=== PATIENT | male | born 1990 | race Caucasian/White ===

== ENCOUNTER 2018-04-18 01:51 | Emergency (ER) | payer OTHER, SELFPAY ==
[2018-04-18] MEDS ORDERED: Ondansetron PF 4 MG/2 ML Vial ONE (02:11)
[2018-04-18] MEDS ORDERED: Morphine 4 MG/ML VIAL ONE (02:11)
[2018-04-18 02:40] LABS: Bilirubin Negative (Negative); Blood, Urine Negative (Negative); Clarity Slightly Cloudy (Clear); Glucose, Urine (Dipstick) Negative (Negative); Leukocyte Negative (Negative); Nitrite Negative (Negative); Protein, Urine (Dipstick) Negative (Neg-Trace); Urobilinogen 0.2 mg/dL (0.2-1.0); pH, Urine 7.5 (5.0-9.0)
--- NOTE | 2018-04-18 09:07 | ULT ---
PRELIMINARY REPORT/[facility]/EMERGENTY AFTER-HOURS PROCEDURE US Scrotum EXAM DATE/TIME: 04/18/2018 3:16 AM CLINICAL HISTORY: 28 years old, male; Pain; Scrotum pain; Patient HX: RT teste pain x 4 hrs, pain started after running 7 miles TECHNIQUE: Real-time ultrasound of the scrotum and contents with color Doppler and image documentation. COMPARISON: No relevant prior studies available. FINDINGS: The testicles are within normal limits and symmetrical in size. Right: No visible intratesticular mass. Duplex Doppler evaluation, with color flow and spectral waveform analysis, demonstrates intratesticul ar arterial and venous blood flow. The right epididymis is normal in size and appearance. There is a small amount of right scrotal fluid. There appears be a right-sided varicocele. Left: No visible intratesticular mass. Duplex Doppler evaluation, with color flow and spectral waveform analysis, demonstrates intratesticul ar arterial and venous blood flow. The left epididymis is normal in size and appearance. There is a small amount of left scrotal fluid. IMPRESSION: 1. No evidence for torsion by Doppler ultrasound. 2. No findings to suggest epididymitis. 3. Small bilateral hydroceles. 4. Right-sided varicocele. 5. Other details discussed above. Thank you for allowing us to participate in the care of your patient. Dictated and Authenticated by: Arnoldo Aguilar MD 04/18/2018 3:39 AM Central Time ([place] & [place]) FINAL REPORT TESTICULAR ULTRASOUND: Date: 04/18/18 FINDINGS/IMPRESSION: I agree with the preliminary report provided by Suzi. Please see the preliminary report for full deta ils. POS: [facility]
== END 2018-04-18 03:48 | disposition home or self-care (01) ==
LOC: SCSER 01:51 → ERS 03:48
DX: N50.819 Testicular pain, unspecified (principal)
CPT/HCPCS: 76870; 81003; 93976; J2270; J2405

== ENCOUNTER 2018-04-20 10:30 | Outpatient (CLI) | payer OTHER ==
--- NOTE | 2018-04-20 12:05 | CT ---
CT ABDOMEN AND PELVIS NONCONTRAST: CT RENAL CALCULUS PROTOCOL: INDICATIONS: Right costovertebral angle pain. COMPARISON: Reference made to 06/21/2013 CT exam. FINDINGS: There are faint areas of density within each kidney that suggest medullary nephrocalcinosis. In isidro tion, punctate hyperdensity of the kidneys may also relate to minute nephrolithiasis. There is no ob structive uropathy present. The urinary bladder is decompressed and unopacified. No evidence of ure teral dilatation. The lung bases are clear, where visualized. Moderate retained fecal material of t he colon is present. The solid abdominal organs, bowel, lymph nodes, and vasculature are limited in assessment by the noncontrast technique. No acute osseous pathology is visualized. There are areas of endplate irregularity with Schmorl's node formation, chronic in appearance. IMPRESSION: 1. Findings would suggest nephrocalcinosis/nephrolithiasis without associated obstructive uropathy. 2. Evaluation otherwise limited on the basis of noncontrast technique. POS: [facility]
== END 2018-04-20 10:31 | disposition home or self-care (01) ==
LOC: CT 10:30
PROVIDERS: ATTEND Urology
DX: M54.9 Dorsalgia, unspecified (principal)
CPT/HCPCS: 74176

== ENCOUNTER 2018-04-21 16:11 | Inpatient (IN) | payer OTHER ==
[2018-04-21 17:18] LABS: #Basophils 0.1 thou/uL (0.0-0.2); #Eosinphils 0.4 thou/uL (0.0-0.7); #Lymphocytes 1.7 thou/uL (1.20-3.40); #Monocytes 0.4 thou/uL (0.11-0.59); #Neutrophils 3.5 thou/uL (1.40-6.50); %Basophils 0.9 % (0.0-1.0); %Eosinophils 6.8 % (0.0-10.0); %Lymphocytes 27.8 % (21.0-51.0); %Neutrophils 57.4 % (42.0-75.0); Hemoglobin 14.5 g/dL (14.0-18.0); Mean Corpuscular Hemoglobin 30.3 pg (27.0-31.0); Mean Corpuscular Volume 89.1 fL (78.0-98.0); Mean Platelet Volume 7.8 fL (7.4-10.4); Platelet Count 162 thou/uL (130-400); RBC Distribution Width 12.3 % (11.5-14.5); White Blood Cell (WBC) Count 6.2 thou/uL (4.8-10.8)
[2018-04-21 17:41] LABS: ALT (SGPT) 16 U/L (8-55); AST (SGOT) 13 U/L (5-34); Albumin 4.3 g/dL (3.5-5.0); Alkaline Phosphatase 52 U/L (40-150); Anion Gap 11 mmol/L (10-20); BUN (Urea Nitrogen) 15 mg/dL (8.9-20.6); Bilirubin, Total 0.5 mg/dL (0.2-1.2); Calc. Creatinine Clearance 0 mL/min (70-130); Calcium 9.4 mg/dL (7.8-10.44); Carbon Dioxide 26 mmol/L (22-29); Chloride 109 mmol/L (98-107); Estimated GFR-MDRD Greater than 90; Globulin 3.2 g/dL (2.4-3.5); Glucose 116 mg/dL (70-105); Potassium 4.3 mmol/L (3.5-5.1); Protein, Total 7.5 g/dL (6.0-8.3); Sodium 142 mmol/L (136-145)
[2018-04-21] MEDS ORDERED: Ketorolac Tromethamine 30 MG/ML VIAL ONE (17:44)
[2018-04-21] MEDS ORDERED: Fentanyl 100 MCG/2 ML VIAL ONE (17:44)
[2018-04-21] MEDS ORDERED: Ondansetron PF 4 MG/2 ML Vial ONE (17:44)
--- NOTE | 2018-04-21 18:07 | ULT ---
TESTICULAR ULTRASOUND INCLUDING COLOR AND SPECTRAL DOPPLER IMAGIN04/21/18 HISTORY: Right testicular pain, history of intermittent testicular torsion. COMPARISON: 04/18/18. FINDINGS: Right testis measures 4.6 x 3.2 x 2.3 cm. Left testis measures 4.4 x 3.1 x 2.8 cm. The right epididym is is somewhat larger than the left. Small bilateral hydroceles are noted. There is normal vascular f low with arterial inflow and venous outflow into both testis. No evidence for testicular torsion. IMPRESSION: No evidence for testicular torsion. Slightly enlarged right epididymis compared to the left. Small hy droceles. No convincing evidence for epididymitis. POS: [facility]
[2018-04-21 18:29] LABS: Bilirubin Negative (Negative); Blood, Urine Negative (Negative); Clarity CLEAR (Clear); Glucose, Urine (Dipstick) Negative (Negative); Leukocyte Negative (Negative); Nitrite Negative (Negative); Protein, Urine (Dipstick) Negative (Neg-Trace); Specific Gravity, Urine 1.026 (1.002-1.036); Urobilinogen 0.2 mg/dL (0.2-1.0); pH, Urine 5.5 (5.0-9.0)
[2018-04-21] MEDS ORDERED: Morphine 4 MG/ML VIAL ONE (18:52)
[2018-04-21] MEDS ORDERED: HYDROmorphone 0.5 MG/0.5 ML SYRINGE ONE (19:39)
[2018-04-21] MEDS ORDERED: HYDROcodone/Acetaminophen 5/325 mg Tablet PO PRN ×2 (20:54)
[2018-04-21] MEDS ORDERED: Acetaminophen 325 MG TAB PO PRN (20:54)
[2018-04-21] MEDS ORDERED: Ondansetron ODT 4 MG TAB SL PRN (20:54)
[2018-04-21] MEDS ORDERED: Ondansetron PF 4 MG/2 ML Vial IVP PRN ×2 (20:54→21:56)
[2018-04-21] MEDS ORDERED: Morphine 4 MG/ML VIAL SLOW IVP PRN (21:00)
[2018-04-21] MEDS ORDERED: Zolpidem Tartrate 5 MG TAB PO PRN (21:56)
[2018-04-21] MEDS ORDERED: diphenhydrAMINE 50 MG/ML VIAL IM PRN (21:56)
[2018-04-21] MEDS ORDERED: diphenhydrAMINE 25 MG CAP PO PRN (21:56)
[2018-04-21] MEDS ORDERED: Promethazine HCl 25 MG/ML VIAL IM PRN (21:56)
[2018-04-21] MEDS ORDERED: diphenhydrAMINE 50 MG/ML VIAL IVP PRN (21:56)
[2018-04-21] MEDS ORDERED: Naloxone HCl 0.4 mg/ml Vial IV PRN (21:56)
[2018-04-21] MEDS ORDERED: Communication Order-Pharmacy FS SCH (22:00)
[2018-04-21] MEDS: HYDROmorphone 10 mg/100 ml CADD IVPB PRN (22:34)
[2018-04-21] MEDS ORDERED: Bismuth Subs 17.5mg/mL Susp 120 ML BOT PO PRN (23:49)
[2018-04-22 01:22] VITALS: BMI 20.9
[2018-04-22] MEDS: Sodium Chloride 0.45% 1,000 ML IV SCH ×2 (03:57→09:42)
[2018-04-22] MEDS ORDERED: Sodium Chloride 0.9% 1,000 ML IV SCH (04:00)
[2018-04-22] MEDS: HYDROmorphone 10 mg/100 ml CADD IVPB PRN (11:40)
[2018-04-22] MEDS: Acetaminophen 1,000 MG in Premix Bag 1 BAG IVPB SCH ×2 (12:47→18:06)
[2018-04-22] MEDS: Ibuprofen 600 MG TAB PO PRN ×2 (13:58→18:07)
--- NOTE | 2018-04-22 15:35 | HP ---
REASON FOR ADMISSION: Intractable right groin and testicular pain. CHIEF COMPLAINT: "My testicle hurts so bad." HISTORY OF PRESENT ILLNESS: Mr. Alfredo is a 28-year-old white male, who is currently a patient of Dr. Ciera Martinez. Dr. Martinez had previously seen him for several issues including some urinary frequency issues as well as chronic right testicular pain and microhematuria. Of these issues, the biggest most concerning to the patient is his right testicular pain. He states that the pain is severely uncontrolled and has been hurting off and on for several years. He claims he has had testicular torsion in the past, although, this was just fixed by external rotation without orchiopexy. He called me over the weekend and claimed that he was having intractable uncontrolled right testicular pain, and I told him that he needed to go to the emergency room. He was reluctant at first, stating that they never do anything for him, but after telling him that he may have another torsion and claimed I could not do anything other for him on the phone. He agreed to go to the ER. At arrival to the ER, he underwent a scrotal ultrasound, which did not demonstrate any evidence of torsion, and he also had a CT scan the day prior to that, which had been scheduled, which suggested nephrocalcinosis and nephrolithiasis without obstruction or ureteral calculi without any solid masses or other concerning features. Due to his uncontrolled pain, he was admitted to the hospital for further pain control. Anesthesia was consulted for assistance as the patient has a long history of chronic pain with high risk of potential abuse and dependency issues. He actually has had narcotic dependency and he states that this has been in the case, and he has been on Suboxone previously due to this. He has a history of kyphosis with bulging disks, has had a sacroiliitis and other chronic pain issues including migraines for which he has been on high-dose narcotics for long periods of time. He states that he has become tolerant to narcotics over this time frame and requires higher doses than what would normally be considered for generalized population. Currently, he states his right testicular pain is so bad that he can barely tolerate. He is currently on a Dilaudid NET APPLICATION SUPPORT SPECIALIST and states that while it is helping, the pain is still not well controlled. He has not yet had a cord block, which Dr. Martinez had talked about doing for a possible orchiectomy. The patient also states that he was planning a cystoscopy possibly for his microhematuria, which has also not been done yet. ALLERGIES: 1. PHENERGAN. 2. CODEINE. 3. TORADOL. HOME MEDICATIONS: 1. Klonopin. 2. Ranitidine. PAST MEDICAL HISTORY: 1. Gastroesophageal reflux disease. 2. Migraines. 3. Insomnia. 4. Anxiety. 5. Opiate dependency. 6. Chronic back pain. PAST SURGICAL HISTORY: 1. Sinus surgery. 2. Radiofrequency ablation for migraines. 3. Hyperhidrosis procedure. 4. Spinal blocks. FAMILY HISTORY: Significant for migraines and anxiety. SOCIAL HISTORY: The patient vapes, but does not smoke cigarettes. Uses alcohol rarely. Has used marijuana, which he states was for migraines, but denies any other illicit drugs. REVIEW OF SYSTEMS: A 12-point review of systems is unremarkable other than what was commented on the HPI. Specifically, his right groin pain which he states is extremely severe at this time. He denies any nausea, vomiting, chest pain, or shortness of breath. He also has had some loose stools and requested some Pepto-Bismol for this, but denies any constipation. PHYSICAL EXAMINATION: VITAL SIGNS: Temperature 98, pulse 67, respirations 18, blood pressure 133/89, and saturations 94% on room air. GENERAL: The patient appears slightly somnolent, but otherwise communicative and answering questions appropriately. He appears to be in quite a bit of pain. HEENT: Normocephalic and atraumatic. Sclerae nonicteric. Pupils are small. Eyelids are somewhat droopy. Trachea midline. Moist mucous membranes. CARDIOVASCULAR: Regular rate and rhythm. Normal S1 and S2. Symmetric pulses. CHEST: No increased work of breathing. Symmetric expansion. LUNGS: Clear anteriorly. ABDOMEN: Soft, nontender, and nondistended. Positive bowel sounds. No organomegaly. No peritoneal signs, rebound, or guarding. GENITOURINARY: The patient is circumcised. Penis is normal without lesions. Both testicles are descended. There is no overlying scrotal erythema or induration. Left testicle is normal without significant tenderness. Right testicle is tender to palpation with more tenderness in the inferior and superior aspects. The cord is slightly tender. The highest amount of pain occurs with compression on the external-inguinal ring and inguinal ligament. EXTREMITIES: No clubbing, cyanosis, or edema. MUSCULOSKELETAL: No obvious joint deformities or joint erythema noted. Full range of motion. NEUROLOGIC: Cranial nerves 2 through 12 appear grossly intact. No focal or sensory deficits identified. PSYCHIATRIC: Somnolent, but oriented x3. The patient appears to be extremely miserable with reported pain greater than what is being seen on exam or physical findings. LABORATORY DATA: On laboratory evaluation, the full set of labs in the [facility] system which I have reviewed. Of note, the patient's white count is 6.2 with a hemoglobin of 14.5. Creatinine is 0.87. Electrolytes are otherwise normal. Urinalysis is completely negative without any hematuria. DIAGNOSTIC DATA: On imaging, again CT from April 20 demonstrates nephrocalcinosis and nephrolithiasis without obstruction or hydronephrosis and no solid masses. Ultrasound from April 21 demonstrates no evidence of testicular torsion with a slightly enlarged right epididymis compared to the left with small bilateral hydroceles. ASSESSMENT AND PLAN: A 28-year-old white male with intractable right groin and testicular pain with majority of the pain being toward the upper part of the spermatic cord. I am not as familiar with this patient, but there is some concern for possible drug-seeking behavior; although, he admits to having had narcotic dependency in the past. At the current time, he does not have hematuria, but he apparently had reported hematuria previously. He has not yet had a cord block, which I think would be necessary before decision for an orchiectomy were to be made. Given that the patient is kind of an unusual circumstance, I will defer surgical treatment of possible orchiectomy to Dr. Martinez, who is his primary urologist. For now, I have consulted Anesthesia, who does not feel comfortable increasing his Dilaudid NET APPLICATION SUPPORT SPECIALIST, but instead he is going to start him on Ofirmev and nonnarcotic based pain control measures to try and further control his pain until he can get to see Dr. Martinez tomorrow, who will resume his care. We will make him n.p.o. after midnight in case any procedures need to be planned. Job ID: [id number]
[2018-04-22 16:37] VITALS: TEMP 98.4
[2018-04-22] MEDS: HYDROcodone/Acetaminophen 10/325 mg Tablet PO PRN (22:08)
[2018-04-23] MEDS: Acetaminophen 1,000 MG in Premix Bag 1 BAG IVPB SCH ×2 (00:05→06:17)
[2018-04-23] MEDS: HYDROcodone/Acetaminophen 10/325 mg Tablet PO PRN (02:11)
[2018-04-23 09:33] VITALS: BP 128/84
--- NOTE | 2018-04-24 10:52 | DIS ---
DATE OF ADMISSION: 04/21/2018 DATE OF DISCHARGE: 04/23/2018 ADMITTING DIAGNOSIS: Intractable right testicular pain. DISCHARGE DIAGNOSES: Intractable right testicular pain with concern for opioid dependence if not abuse. HOSPITAL COURSE: The patient is a 28-year-old male, I saw in the office on Monday, after he had been in the ER a few days prior with right testicular pain. He has a long drawn out history of this since at least 2013, where he has had prior CTs and prior ultrasounds, none of which are concerning for torsion or lack of flow nor mass, but these suggest potential for increase flow for possible epididymitis. When he saw me in the office, he is asking for pain medicine and I told him that I would only give him pain medicine if he was found to have a stone and a CT scan immediately after he saw me ruled that out, so I told him he needed to follow up for cystoscopy in the office, which he had planned for today. However, over the weekend, he was admitted through the ER by Dr. Pedro for pain and he got a TRADE SHOW MANAGER with Dilaudid and asked for this to be increased as this still is not helping. When he discussed the patient with me, I told him my concerns for opioid abuse and he found further documentation that he was let go by prior primary doctors for concerns related to this and I relayed to him that the patient had blood around his mouth, that had dried in the office visit with me and could not explain why other than chapped lips, while his urine from that day showed both blood, but no infection as well as tested positive for marijuana, opioids, and benzodiazepines. Given all this information, Dr. Pedro and I agree that we would stop the TRADE SHOW MANAGER, give him only oral pain medicine overnight and then I would reassess his condition in the morning. When I walked in, he looked miserable in the bed. However, as we continued to talk, his disposition returned less from pain and more for being disgruntled as I relayed to him my concerns for him not being completely truthful, both about his medications and prior history. I told him that I was concerned that he had opioid dependency or at least abuse problems and for this reason, I would not agree to take out his testicle. However, I do believe that he does have right-sided testicular pain and I am happy to complete the workup, which would include office cystoscopy to rule out stricture and if he responds well to a cord block, then consider orchiectomy at this point, and this was relayed to him. He reported that he had that done in the office a few months ago by another urologist and I asked him to get these results to me so that I would not have to repeat the exam for him. I also relayed to him that I am concerned if I cannot trust the patient that I would not want to do a life changing procedure by removing 1 of his organs until he has established a better relationship with me and for this reason, he is happy to seek his care from somewhere else, but as I stated him already I would be happy to complete the workup and consider an orchiectomy in the future if he is proven to be a trustworthy and compliant patient. We discussed that he would be best off being discharged because he will not get further narcotics or anything in the hospital that he cannot get at home. So at this time, he is being discharged and he can follow up with me in the office for cystoscopy or provide documentation that he already had this in the past year or he can follow up with another urologist. Job ID: [id number]
== END 2018-04-23 09:09 | disposition home or self-care (01) | DRG 729 ==
LOC: ERS 16:11 → SURG B 19:50
PROVIDERS: ADMIT Urology; ATTEND Urology
DX: N50.811 Right testicular pain (principal); F11.20 Opioid dependence, uncomplicated; Z88.6 Allergy status to analgesic agent; Z79.899 Other long term (current) drug therapy
CPT/HCPCS: 36415; 76870; 80053; 81003; 85025; 87086; 93976; J0131; J1170; J1885; J2270; J2405; J3010

== ENCOUNTER 2019-02-22 15:00 | Emergency (ER) | payer OTHER ==
--- NOTE | 2019-02-22 15:55 | RAD ---
RIGHT RIB SERIES WITH A PA VIEW OF THE CHEST INDICATION: Rib pain with hemoptysis COMPARISON: None. FINDINGS: Chest radiograph: The lungs are clear. Heart size is normal. No pleural effusion or pneumothorax is d emonstrated. Right Ribs: No displaced right-sided rib fracture is demonstrated. IMPRESSION: No displaced right-sided rib fracture
--- NOTE | 2019-02-22 15:56 | RAD ---
LEFT RIB SERIES INDICATION: Left-sided rib pain with hemoptysis COMPARISON: None. FINDINGS: Visualized Left Chest: Visualized left lung is clear. No pneumothorax. Left Ribs: No displaced left-sided rib fracture is demonstrated. IMPRESSION: No displaced left-sided rib fracture
--- NOTE | 2019-02-22 16:35 | CT ---
Exam: Thoracic spine CT without contrast HISTORY: Disc herniation. Pain. Fall. Comparison: None FINDINGS: Visualized mediastinum, lung parenchyma and solid organs are unremarkable. No paraspinal or retroperitoneal mass, lymphadenopathy or hematoma. Incidental 5 mm subpleural lymph node adjacent to the left major fissure Thoracic spine vertebral body height is maintained. There is no thoracic spine fracture. No spondylol isthesis or spondylolysis. Visualized bony thorax is intact. There is fusion of the T8-T9 disc space. Multilevel endplate changes likely representing Schmorl's no robert. Coronal images and sagittal images do not demonstrate any malalignment. IMPRESSION: Unremarkable CT thoracic spine. No fracture. No acute abnormality. Additional chronic andre nges as described above. Transcribed Date/Time: 02/22/2019 5:12 PM
[2019-02-22] MEDS ORDERED: Morphine 10 MG/ML VIAL ONE (16:50)
== END 2019-02-22 17:12 | disposition home or self-care (01) ==
LOC: SCSER 15:00
DX: S29.012A Strain of muscle and tendon of back wall of thorax, initial encounter (principal); F17.290 Nicotine dependence, other tobacco product, uncomplicated; W10.9XXA Fall (on) (from) unspecified stairs and steps, initial encounter; Z79.899 Other long term (current) drug therapy
CPT/HCPCS: 72128; 96372; J2270

== ENCOUNTER 2019-02-23 15:29 | Emergency (ER) | payer OTHER ==
[2019-02-23] MEDS ORDERED: Ondansetron PF 4 MG/2 ML Vial ONE (15:43)
[2019-02-23] MEDS ORDERED: Morphine 4 MG/ML VIAL ONE ×3 (15:43→18:15)
[2019-02-23 16:14] LABS: #Lymphocytes 1.5 thou/uL (1.20-3.40); #Monocytes 0.7 thou/uL (0.11-0.59); #Neutrophils 5.1 thou/uL (1.40-6.50); %Basophils 0.2 % (0.0-1.0); %Eosinophils 0.1 % (0.0-10.0); %Neutrophils 70.8 % (42.0-75.0); Hemoglobin 16.1 g/dL (14.0-18.0); Mean Corpuscular HGB CONC 34.4 g/dL (32.0-36.0); Mean Corpuscular Hemoglobin 29.7 pg (27.0-31.0); Mean Corpuscular Volume 86.3 fL (78.0-98.0); Mean Platelet Volume 7.7 fL (7.4-10.4); Platelet Count 174 thou/uL (130-400); RBC Distribution Width 13.1 % (11.5-14.5); Red Blood Cell (RBC) Count 5.41 mill/uL (4.70-6.10); White Blood Cell (WBC) Count 7.3 thou/uL (4.8-10.8)
[2019-02-23 16:34] LABS: ALT (SGPT) 16 U/L (8-55); AST (SGOT) 16 U/L (5-34); Alkaline Phosphatase 63 U/L (40-110); Anion Gap 16 mmol/L (10-20); BUN (Urea Nitrogen) 14 mg/dL (8.9-20.6); Bilirubin, Total 0.9 mg/dL (0.2-1.2); Calc. Creatinine Clearance 0 mL/min (70-130); Calcium 10.1 mg/dL (7.8-10.44); Carbon Dioxide 24 mmol/L (22-29); Chloride 106 mmol/L (98-107); Estimated GFR-MDRD Greater than 90; Globulin 3.9 g/dL (2.4-3.5); Glucose 97 mg/dL (70-105); Potassium 4.2 mmol/L (3.5-5.1); Protein, Total 8.9 g/dL (6.0-8.3); Sodium 142 mmol/L (136-145)
--- NOTE | 2019-02-23 18:05 | ULT ---
TESTICULAR ULTRASOUND: 02/23/19 COMPARISON: 04/21/18. HISTORY: Left testicular pain. TECHNIQUE: Grissom scale, color flow, Doppler imaging with spectral waveform analysis performed in the testicles. FINDINGS: Right hemiscrotum: No testicular masses. Appropriate echotexture. Right testicle measures 2.9 x 1.9 x 4.6 cm. Right epid idymis has a normal echotexture, measuring 1.2 x 1.2 x 1.0 cm. No hydrocele. Left hemiscrotum: Left testicle has a homogeneous echotexture. No testicular masses. Left testicle measures 2.3 x 2.7 x 4.4 cm. There is a 0.3 x 0.2 x 0.2 cm anechoic focus in the head of the epididymis. Left epididymis measures 1.0 x 1.1 x 1.2 cm. No hydrocele. Testicular Doppler: There is vascular flow to the left and right testicle. IMPRESSION: 1. Essentially unremarkable testicular ultrasound. 2. Small cyst in the head of the left epididymis. POS: [facility]
[2019-02-23 18:11] LABS: Bacteria/HPF None Seen HPF (None Seen); Bilirubin Negative (Negative); Blood, Urine Negative (Negative); Clarity Clear (Clear); Glucose, Urine (Dipstick) Normal (Negative); Leukocyte Negative Leu/uL (Negative); Nitrite Negative (Negative); Protein, Urine (Dipstick) 30 mg/dL (Neg-Trace); RBC/HPF 0-3 HPF (0-3); Squamous Epithelial None Seen HPF (0-3); Urobilinogen Normal mg/dL (Less than 2); WBC/HPF 0-3 HPF (0-3)
[2019-02-23] MEDS ORDERED: Ketorolac Tromethamine 30 MG/ML VIAL ONE (18:15)
[2019-02-23 18:30] LABS: Medtox Reader # READER 1
[2019-02-23 18:31] LABS: Amphetamine Not Detected (NotDetected); Barbiturates Screen Not Detected (NotDetected); Benzodiazepine Screen Detected (NotDetected); Cocaine Metabolite Screen Not Detected (NotDetected); Medtox Control Line Valid? VALID (VALID); Methadone Not Detected (NotDetected); Methamphetamine Not Detected (NotDetected); Opiate Screen Detected (NotDetected); Oxycodone Screen Not Detected (NotDetected); Phencyclidine (PCP) Not Detected (NotDetected); THC/Cannabinoid Screen Detected (NotDetected); Tricyclic Screen Not Detected (NotDetected)
[2019-02-25 21:22] LABS: Chlam.trachomatis by PCR,Urine Not Detected (NotDetected)
== END 2019-02-23 18:26 | disposition home or self-care (01) ==
LOC: ERS 15:29
DX: N50.812 Left testicular pain (principal); F41.0 Panic disorder [episodic paroxysmal anxiety]; F17.290 Nicotine dependence, other tobacco product, uncomplicated; Z79.899 Other long term (current) drug therapy
CPT/HCPCS: 36415; 76870; 80053; 80306; 81003; 81015; 85025; 87086; 87491; 87591; 93976; 96374; 96375; 96376; J1885; J2270; J2405